=== PATIENT | male | born 1995 | race Caucasian/White ===

== ENCOUNTER 2017-09-12 10:41 | Outpatient (CLI) | payer OTHER | END 2017-09-12 15:08 | disposition home or self-care (01) | LOC: MRI 10:41 | DX: N45.1 Epididymitis (principal); N50.819 Testicular pain, unspecified | CPT/HCPCS: 72197 ==

== ENCOUNTER → 2018-11-09 | Outpatient (CLI) | payer OTHER | END | disposition home or self-care (01) | LOC: NUCLEAR 11:00 | DX: N50.812 Left testicular pain (principal); N50.811 Right testicular pain | CPT/HCPCS: 78761; A9512 ==